=== PATIENT | male | born 1990 | race Two or more races ===

== ENCOUNTER 2016-08-23 20:29 | Emergency (ER) | payer MEDICAID ==
[2016-08-23 20:41] VITALS: BP 159/112; PULSE 130; RESP 24; TEMP 98.4; O2SAT 91
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
== END 2016-08-23 22:00 | disposition home or self-care (01) ==
PROC: 0HBKXZZ Excision of Right Lower Leg Skin, External Approach (ICD-10-PCS; principal; 2016-08-23)
DX: T24.231A Burn of second degree of right lower leg, initial encounter (principal); I10 Essential (primary) hypertension; L98.8 Other specified disorders of the skin and subcutaneous tissue; T31.0 Burns involving less than 10% of body surface; X16.XXXA Contact with hot heating appliances, radiators and pipes, initial encounter